=== PATIENT | male | born 1955 | race Caucasian/White ===

== ENCOUNTER 2024-02-06 09:10 | Emergency (ER) | payer MEDICARE, OTHER ==
[~2024-02-06] VITALS: Ht 172.7 cm; Wt 149.7 kg
[2024-02-06 09:21] VITALS: PULSE 87; RESP 20; TEMP 98.1; O2SAT 97
[2024-02-06] MEDS ORDERED: CIPRO500 MG PO (09:35)
[2024-02-06] MEDS ORDERED: CLINDAMYCIN HC150 MG PO (09:35)
== END 2024-02-06 09:49 | disposition home or self-care (01) ==
LOC: ER 09:22
DX: L03.116 Cellulitis of left lower limb (principal); L03.115 Cellulitis of right lower limb; I87.8 Other specified disorders of veins; L30.4 Erythema intertrigo; I10 Essential (primary) hypertension; E11.9 Type 2 diabetes mellitus without complications; E78.5 Hyperlipidemia, unspecified; I48.91 Unspecified atrial fibrillation
CPT/HCPCS: 99283